=== PATIENT | female | born 1930 | race Caucasian/White ===

== ENCOUNTER 2017-07-28 18:00 | Inpatient (IN) | payer MEDICARE, BC ==
[~2017-07-28] VITALS: Ht 162.6 cm; Wt 65.8 kg
--- NOTE | ~2017-07-28 | DS ---
Discharge Summary [facility] [address] [facility] [place]. [address] NAME: REGINA SHARMA : [birth year] STATUS : DIS IN PAT#: [id number] AGE: 86 ADM/REG DATE : 07/29/17 MR#: [id number] REPORT SERV DATE: 08/04/17 DICTATED BY: TREMAYNE SHARMA DATE: 08/03/17 REPORT STATUS : Draft TRANSCRIBED BY: MODL DATE: 08/03/17 ADMISSION DATE: 07/29/2017 DISCHARGE DATE: 08/03/2017 REASON FOR ADMISSION: This is an 86-year-old female who came in with chief complaint of fall and hip pain. In the emergency room, she was found to have white blood cell count of 19,000 and urinalysis which was positive for leukocyte esterase, nitrates, and 20 white blood cells. The patient admitted for UTI and right hip pain. X-rays in the ER on her hip would be negative for fracture. DISCHARGE DIAGNOSES: 1. Urinary tract infection with Escherichia coli bacteremia. 2. Atrial fibrillation with rapid ventricular response. 3. Acute kidney injury on chronic kidney disease, 3. 4. Hypertension. 5. Pulmonary edema, resolving, status post diuresis. HOSPITAL COURSE: 1. UTI. The patient would have urine culture come back positive for E coli and then later would have blood cultures come back 2/2 positive for E coli. Initially, she was started on IV Rocephin and then transitioned over to IV Ancef once final cultures were known. She will need to be on oral Duricef which we have converted her to for 8 more days to complete a 2-week course of antibiotic for the UTI E coli bacteremia. 2. AFib with RVR. The patient with known history of paroxysmal atrial fibrillation. Consult was placed to Cardiology. The patient was seen by Dr. Godwin for the paroxysmal atrial fibrillation. He recommended continuing Coumadin and also recommended considering doing elective DC cardioversion. The patient would have cardioversion on the and is still in normal sinus rhythm today. She has been continued on Coumadin and her INR is 2.6. 3. Pulmonary edema. The patient did have a cough coming in which worsened during her AFib with RVR. Chest x-ray was taken which was found to have some pulmonary edema. She was given Lasix IV and showed improvement on chest x-ray this morning. She is on oral Lasix which will be continued 20 mg p.o. daily. 4. CKD 3. The patient did have a spike in her creatinine coming in the hospital. Creatinine was 1.98, would elevate to 2.23, and has come down at 1.57 today which is at baseline. DISCHARGE CONDITION: Stable. DISCHARGE MEDICATIONS: 1. Warfarin 5 mg p.o. daily. 2. Procrit 22,000 units subcutaneous every 30 days. 3. Metoprolol 50 mg p.o. b.i.d. 4. Spironolactone 25 mg p.o. daily. 5. Primidone 250 mg p.o. daily. 6. Allopurinol 100 mg p.o. daily. Discharge Summary [address] [address] NAME: REGINA SHARMA : [birth year] STATUS : DIS IN PAT#: [id number] AGE: 86 ADM/REG DATE : 07/29/17 MR#: [id number] REPORT SERV DATE: 08/04/17 DICTATED BY: TREMAYNE SHARMA DATE: 08/03/17 REPORT STATUS : Draft TRANSCRIBED BY: ACLE DATE: 08/03/17 7. Calcitriol 0.25 mcg p.o. Sunday, Sunday, Sunday. 8. Omeprazole 20 mg p.o. daily. 9. Vitamin D Caltrate one tablet p.o. every seven days. 10.Flecainide 25 mg p.o. q.a.m., 50 mg p.o. q.p.m. 11.Vitamin D 50,000 units p.o. weekly. 12.Levothyroxine 37.5 mcg p.o. daily. 13.Zoloft 50 mg p.o. daily. DISCHARGE PLAN: The patient had a fall coming into the hospital, was not found to have fracture, but PT evaluation here at the hospital revealed need for inpatient rehab. She will be discharged to [facility] for rehab. She will need to follow up with her primary care, Yuval Sharma, after rehab and follow up with Cardiology in two to four weeks. This dictation was done in collaboration with Tremayne Sharma MD., and total discharge time greater than 30 minutes. KOKO/JEOVANYL Chevy uL APN Tremayne Sharma M.D. / [id number] CC: Nora Moreno M.D. John Carter Hemphill, MD
--- NOTE | ~2017-07-28 | CN ---
Consultation Report [facility] [address] [place]. [address] NAME: REGINA SHARMA : [birth year] STATUS : ADM IN PAT#: [id number] AGE: 86 ADM/REG DATE : 07/29/17 MR#: [id number] REPORT SERV DATE: 07/31/17 DICTATED BY: JIM STAPLES DATE: 07/30/17 REPORT STATUS : Draft TRANSCRIBED BY: MODSantosh DATE: 07/30/17 CARDIOLOGY CONSULTATION NOTE DATE OF CONSULTATION: 07/30/2017 REASON FOR CONSULTATION: Paroxysmal atrial fibrillation and atrial fibrillation with rapid ventricular response. HISTORY OF PRESENT ILLNESS: Ms. Sharma is a pleasant 86-year-old woman with a history of paroxysmal atrial fibrillation, who is followed by Dr. German Cooper. The patient was in her usual state of health until yesterday. The patient apparently suffered a fall onto her left hip. The patient was initially felt to have a hip fracture, but subsequent x-ray and CT studies of the hip demonstrated no significant hip fracture. The patient was found to have a urinary tract infection. She is now found to have urosepsis with E. coli on 3 out of 3 blood cultures. The patient is being treated with antibiotics. She had a leukocytosis, which is improving. The patient is presently afebrile. Last night, the patient converted from sinus rhythm to atrial fibrillation with a rapid ventricular response. The patient has been treated with IV Cardizem and her heart rate is now adequately controlled with a rate in the 70s and 80s. The patient is mildly tachypneic at this time. She was more severely tachypneic last night per report, though she currently reports that she is breathing easily. She denies any chest pain. The patient has had 3 previous cardioversions for episodes of atrial fibrillation. She is being treated with flecainide for a rhythm-control strategy. The patient has no known history of congestive heart failure. Her most recent echocardiogram was performed in the year 2011, and demonstrates a left ventricular ejection fraction of 56% with no significant valvular heart disease. PAST MEDICAL HISTORY: 1. Hypertension. 2. Atrial fibrillation. 3. Frequent falls. 4. Stage III chronic kidney disease. 5. Hypothyroidism. PAST SURGICAL HISTORY: Significant for hysterectomy, and otherwise noncontributory. SOCIAL HISTORY: The patient has no significant history of tobacco, alcohol, or drug use. She lives independently at home and ambulates with a walker. ALLERGIES: THE PATIENT HAS NO KNOWN MEDICATION ALLERGIES. HOME MEDICATIONS: 1. Allopurinol 100 mg p.o. q.p.m. 2. Norvasc 10 mg p.o. q.p.m. Consultation Report [facility] [address] [place]. [address] NAME: REGINA SHARMA : [birth year] STATUS : ADM IN PAT#: [id number] AGE: 86 ADM/REG DATE : 07/29/17 MR#: [id number] REPORT SERV DATE: 07/31/17 DICTATED BY: JIM STAPLES DATE: 07/30/17 REPORT STATUS : Draft TRANSCRIBED BY: CALE DATE: 07/30/17 3. Artificial Tears as needed. 4. Calcitriol 0.25 mg p.o. Sunday, Sunday, and Sunday morning. 5. Caltrate 1 tablet weekly on Wednesdays. 6. Chlorthalidone 25 mg p.o. q.p.m. 7. Clonidine 0.1 mg p.o. q.a.m. and 0.2 mg p.o. q.p.m. 8. Docusate 100 mg p.o. q.p.m. and 100 mg p.o. every Sunday and Sunday a.m. 9. Vitamin D 50,000 units p.o. weekly. 10.Flecainide 25 mg p.o. q.a.m. and 50 mg q.p.m. 11.Levothyroxine 37.5 mg daily. 12.Losartan 150 mg p.o. every afternoon. 13.Metoprolol tartrate 50 mg p.o. twice daily. 14.Prilosec 20 mg p.o. q.p.m. 15.Mysoline 250 mg p.o. q.p.m. 16.Zoloft 50 mg p.o. every evening. 17.Aldactone 25 mg daily. 18.Procrit injections. 19.Coumadin 6 mg p.o. q.p.m. REVIEW OF SYSTEMS: A complete 12-system review was performed. This is noncontributory except for the pertinent positives and negatives noted in the history of present illness above. PHYSICAL EXAMINATION: VITAL SIGNS: Current temperature is 97.9, T-max is 100.0, blood pressure is 144/65, heart rate is 89 beats per minute and irregular, respirations 23, and oxygen saturation is 94% on 2 L. CONSTITUTIONAL: The patient is a frail elderly white woman, who is slightly tachypneic, but otherwise in no acute distress. She speaks in complete sentences. The patient exhibits a generalized tremor. EYES: PERRL, EOMI, clear conjunctiva. HEAD/MNT: NCAT with moist mucous membranes and grossly normal hard and soft palate. NECK: Supple with no obvious thyromegaly or lymphadenopathy CARDIOVASCULAR: There is an irregularly irregular rhythm with a variable S1 and physiologically split second heart sound. There is a grade 2/6 systolic ejection murmur noted at the right upper sternal border with a holosystolic murmur noted at the left lower sternal border which does not clearly radiate. The jugular venous pressure appears to be elevated at 10 cm of water. PULMONARY: There are rales noted in the lung bases bilaterally with globally decreased air movement. There is no dullness to percussion noted. ABDOMINAL: Soft, non-tender, non-distended with no hepatosplenomegaly noted. EXTREMITIES: There is no significant clubbing, cyanosis, or edema. MUSCULOSKELETAL: Grossly normal strength and range of motion in all extremities INTEGUMENTARY: Skin appears intact with no bruises, wounds or active lesions noted NEURO/PSYC: Alert and oriented x3, with no dysarthria, facial droop or lateralizing weakness noted. Consultation Report [address] [address] NAME: REGINA SHARMA : [birth year] STATUS : ADM IN [facility]#: [id number] AGE: 86 ADM/REG DATE : 07/29/17 MR#: [id number] REPORT SERV DATE: 07/31/17 DICTATED BY: JIM STAPLES DATE: 07/30/17 REPORT STATUS : Draft TRANSCRIBED BY: CALE DATE: 07/30/17 DIAGNOSTIC DATA: A 12-lead EKG: The patient's admission 12-lead EKG shows normal sinus rhythm with poor anterior R-wave progression and an incomplete left bundle-branch block pattern and secondary ST/T-wave changes. A subsequent EKG performed on 07/29/2017, at 1436 hours shows atrial fibrillation with a rapid ventricular response and a ventricular rate of 126 beats per minute. Chest x-ray: This shows cephalization/mild pulmonary vascular congestion with no other acute abnormality. CBC shows a white blood cell count of 11.3, hemoglobin 9.9, hematocrit 31, and platelets 180. INR is 1.9. Electrolytes show a sodium of 141, potassium 4.0, chloride is 112, CO2 of 18, BUN 59, creatinine is 1.97, glucose 98, and calcium is 7.9. Procalcitonin is elevated at 2.16. Again, the patient has positive blood cultures for E. coli. Albumin is decreased at 3.3. TSH is normal at 1.35. ASSESSMENT AND PLAN: 1. Paroxysmal atrial fibrillation: I would recommend the patient continue Coumadin if possible. The patient is currently being treated with Lovenox, though this has been discontinued and a heparin drip has been ordered. Once the patient is euvolemic and her urinary tract infection has been treated, we will consider elective DC cardioversion as per the patient's request. The patient will probably not require transesophageal echocardiography as she has been on Coumadin and/or Lovenox/heparin since admission and has been in atrial fibrillation for less than 24 hours. 2. Congestive heart failure: The patient has elevated jugular venous pressure, cephalization on her chest x-ray, and pulmonary rales suggestive of acute heart failure. This is likely due to diastolic heart failure from atrial fibrillation with rapid ventricular response. A repeat echocardiogram will be obtained to evaluate for valvular heart disease given the patient's murmurs, and also to re-evaluate the patient's left ventricular systolic function. 3. Chronic kidney disease: The patient is being rehydrated for her acute on chronic renal failure. However, the patient does appear to be at least mildly volume overloaded. I have requested that the patient's IV fluids to be discontinued. If the patient continues to exhibit evidence of volume overload, we will consider gentle diuresis as tolerated. Thank you for allowing me to participate in the care of Ms. Sharma. The Cardiology Service will continue to follow the patient closely during this hospitalization. JERROD/CALE Jim Seymour Consultation [facility] [address] [facility] [address] NAME: REGINA SHARMA : [birth year] STATUS : ADM IN PAT#: [id number] AGE: 86 ADM/REG DATE : 07/29/17 MR#: [id number] REPORT SERV DATE: 07/31/17 DICTATED BY: JIM STAPLES DATE: 07/30/17 REPORT STATUS : Draft TRANSCRIBED BY: MODL DATE: 07/30/17 MD Citlali / [id number] CC: Nora Nayak M.D.
--- NOTE | ~2017-07-28 | HP ---
History And Physical [place] [id number] [facility] [place]. [address] NAME: REGINA SHARMA : [birth year] STATUS : ADM IN PAT#: [id number] AGE: 86 ADM/REG DATE : 07/29/17 MR#: [id number] REPORT SERV DATE: 07/29/17 DICTATED BY: MANPREET JEREZ DATE: 07/29/17 REPORT STATUS : Draft TRANSCRIBED BY: MODL DATE: 07/29/17 DATE OF ADMISSION: 07/28/2017 POINT OF ENTRY: [facility] Emergency Department. PRIMARY PRODUCT SUPPORT REPRESENTATIVE: Dr. Cooper. PRIMARY BARBACK: Dr. Ko. CHIEF COMPLAINT: Fall with hip pain. HISTORY OF PRESENT ILLNESS: Ms. Sharma is an 86-year-old female with a history of paroxysmal atrial fibrillation, on Coumadin; as well as hypertension; chronic kidney disease stage 3; hypothyroidism; and osteoarthritis, who presents to the emergency department today with reports of a mechanical fall at home with resulting hip pain and difficulties walking. The patient states she was in her usual state of health until today when walking into her den, which is sunken. She tripped and fell while going down the steps into her den. She denies any head trauma. Denies any loss conscious, but was unable to get up off the ground and laid there for approximately two to three hours before family members found her on the ground and assisted her back up. The patient states initially she had some pain in her left hip region, but was able to walk with significant assistance, but a few hours later, after trying to get up out of the bed, she was in such severe pain that she was unable to walk or place any weight on her lower extremities even with maximal assistance from family. The patient and family tell me of multiple episodes of mechanical falls, some including head trauma. She has multiple areas of superficial skin tears, abrasions, and bruises from current and previous falls. The patient describes a chronic sensation of disequilibrium, where she said she staggers and occasionally falls backwards while walking. She denies any recent fevers, night sweats, chills, chest pain, palpitations, shortness of breath, abdominal pain, nausea, vomiting, diarrhea, constipation, dysuria, melena, hematochezia, hemoptysis, or hematemesis. Initial evaluation in the emergency department is notable for blood pressure 196/77, heart rate of 90 with a temperature of 100.0 degrees Fahrenheit. Labs are notable for a white count of 19,000. She does have urinary tract infection. BUN and creatinine above her recent baseline. CT of the brain is unremarkable. CT scan of the pelvis as well as plain films of the hips and pelvic region are also unremarkable. She was subsequently admitted to the Hospitalist Service for further evaluation and management. COMPREHENSIVE REVIEW OF SYSTEMS: Otherwise negative unless listed in history of present illness. PREVIOUS MEDICAL HISTORY: 1. Paroxysmal atrial fibrillation, on anticoagulation. History And Physical [address] [address] NAME: REGINA SHARMA : [birth year] STATUS : ADM IN [facility]#: [id number] AGE: 86 ADM/REG DATE : 07/29/17 MR#: [id number] REPORT SERV DATE: 07/29/17 DICTATED BY: MANPREET JEREZ DATE: 07/29/17 REPORT STATUS : Draft TRANSCRIBED BY: CALE DATE: 07/29/17 2. Hypertension. 3. Chronic kidney disease stage 3. Baseline creatinine approximately 1.2 to 1.4. 4. Essential tremor. 5. Hypothyroidism. 6. Gout. 7. Spinal stenosis. 8. Osteoarthritis. 9. Chronic anemia. SURGICAL HISTORY: 1. Abdominal hysterectomy. 2. Right cataract. 3. Parathyroidectomy. 4. Appendectomy. ALLERGIES: NO KNOWN DRUG ALLERGIES. HOME MEDICATIONS: 1. Allopurinol 100 mg daily. 2. Norvasc 10 mg daily. 3. Artificial tears one drop q.i.d. p.r.n. 4. Rocaltrol 0.25 mcg Sunday, Sunday, Sunday. 5. Caltrate with D one tab every week. 6. Chlorthalidone 25 mg daily. 7. Clonidine 0.1 mg daily. 8. Clonidine 0.2 mg q.p.m. 9. Docusate 100 mg q.p.m. 10.Docusate 100 mg Sunday and Sunday mornings. 11.Vitamin D 50,000 units weekly. 12.Flecainide 25 mg q.a.m. 13.Flecainide 50 mg q.p.m. 14.Levothyroxine 37.5 mcg daily. 15.Cozaar 150 mg daily. 16.Lopressor 50 mg b.i.d. 17.Omeprazole 20 mg daily. 18.Primidone 250 mg daily. 19.Zoloft 50 mg daily. 20.Aldactone 25 mg daily. 21.Procrit every month. 22.Eye injections every 42 days. 23.Coumadin 6 mg daily. SOCIAL HISTORY: She denies any tobacco, alcohol, or illicits. She lives alone. FAMILY MEDICAL HISTORY: Mother with diabetes, congestive heart failure. Father with cerebral hemorrhage. Siblings with congestive heart failure, end-stage renal disease, and diabetes. History And Physical [address] [address] NAME: REGINA SHARMA : [birth year] STATUS : ADM IN [facility]#: [id number] AGE: 86 ADM/REG DATE : 07/29/17 MR#: [id number] REPORT SERV DATE: 07/29/17 DICTATED BY: MANPREET JEREZ DATE: 07/29/17 REPORT STATUS : Draft TRANSCRIBED BY: CALE DATE: 07/29/17 LABS AND IMAGIN. White count is 19.0, hemoglobin is 10.9, hematocrit is 33.2, platelet count is 224, MCV is 108, INR is 2.2. 2. Sodium is 140, potassium 4.4, chloride 109, carbon dioxide 22, BUN 56, creatinine 1.98, glucose is 124, calcium is 9.1, protein 7.5, albumin is 3.3, bilirubin is 0.4, ALT is 29, AST is 39, alkaline phosphatase is 107. 3. Urinalysis, specific gravity is 1.014, hazy with small leukocyte esterase with positive nitrites and 20 white blood cells per high-powered field. 4. Chest x-ray per my review shows no acute cardiopulmonary abnormality. 5. Plain films of the hip and pelvis also per my review shows no acute fractures or dislocations. 6. CT scan of the brain shows no acute intracranial abnormality. Shows moderate diffuse involutional changes and deep white matter changes. 7. CT scan of the abdomen and pelvis shows no acute fractures or dislocations. Does show evidence of diverticulosis without evidence of diverticulitis. 8. EKG per my review shows normal sinus rhythm with no evidence of any acute ischemia or infarction with some LVH-type changes. PHYSICAL EXAMINATION: VITAL SIGNS: Temperature is 100.0 degrees Fahrenheit, pulse 90, respirations 20, saturating 97% on room air, blood pressure 196/77. On recheck, blood pressure is now is 142/72, pulse of 95. GENERAL: The patient is awake, alert, in no acute distress, resting comfortably in bed. She is a well-developed, well-nourished elderly female. Family members are at bedside. HEENT: Atraumatic and normocephalic. Moist mucous membranes. Pupils are equal, round, reactive to light and accommodation. Extraocular eye movements are intact. No scleral icterus. NECK: No jugular venous distention. No carotid bruits. CARDIAC: Regular rate and rhythm with 3/6 systolic murmur heard best over left lower sternal border. LUNGS: Clear to auscultation bilaterally. No wheezes, rhonchi, or crackles. ABDOMEN: Soft, nontender, nondistended with good bowel sounds. No rebound, guarding, or rigidity. EXTREMITIES: Warm and well perfused. No cyanosis, clubbing, or edema. Does have some mild tenderness to palpation over her bilateral hip region, left greater than right. SKIN: Multiple areas of abrasions as well as skin tears notably over the right elbow and right walton as well as some ecchymoses as well. PSYCH: Affect appropriate. NEURO: Alert and oriented x3. Cranial nerves 2 through 12 grossly intact. Speech is normal. Gait not assessed. ASSESSMENT: Ms. Sharma is an 86-year-old female, who suffered a mechanical fall at home today with resulting hip and lower extremity pain with inability to walk and also found to have evidence of acute kidney injury on chronic kidney stage 3, as well as urinary tract infection. History And Physical [address] [address] NAME: REGINA SHARMA : [birth year] STATUS : ADM IN PAT#: [id number] AGE: 86 ADM/REG DATE : 07/29/17 MR#: [id number] REPORT SERV DATE: 07/29/17 DICTATED BY: MANPREET JEREZ DATE: 07/29/17 REPORT STATUS : Draft TRANSCRIBED BY: CALE DATE: 07/29/17 PROBLEM LIST: 1. Fall. 2. Hip and lower extremity pain. 3. Gait abnormality. 4. Urinary tract infection. 5. Acute kidney injury on chronic kidney disease stage 3. 6. Leukocytosis. 7. Paroxysmal atrial fibrillation, on anticoagulation. PLAN: 1. Fall with right hip pain. We will admit the patient to the Hospitalist Service. We will provide supportive care with antiemetics and pain control. We will consult Physical Therapy for assistance. Should she continue to have difficulties ambulating due to pain, will likely need to be placed in nursing facility in the short term. 2. Urinary tract infection. Follow up urine cultures. IV Rocephin. 3. Acute kidney injury on chronic kidney disease stage 3. Gentle IV fluid hydration. Holding the patient's nephrotoxic medications including chlorthalidone, Aldactone, and losartan. 4. Leukocytosis likely secondary to urinary tract infection. Chest x-ray is clear. Follow up blood cultures. Also checking lactic acid as well as procalcitonin. 5. Paroxysmal atrial fibrillation, on anticoagulation. The patient reports a history of multiple mechanical falls, some including head trauma. Given the patient's advanced age as well as gait instability, I suspect that she is a very high fall risk and very high risk for possible intracerebral hemorrhage given her anticoagulation. We will consult Physical Therapy for assistance in evaluation, but ultimately defer decision whether or not to continue anticoagulation to her primary care provider as well as her program director scouting. 6. Hypertension. Continue the patient's home Norvasc and metoprolol. Given that I am holding her diuretics and losartan, we will add on hydralazine IV p.r.n. for elevated blood pressure. 7. DVT prophylaxis. She is already therapeutically anticoagulated. 8. Code status. The patient wished to be full code. JCB/MODL Manpreet Jerez MD / [id number] CC: Nora River M.D. Nilesh C Patel, M.D.
--- NOTE | ~2017-07-28 | OP ---
Record Of Operation [facility] [address] [place]. [address] NAME: REGINA SHARMA : [birth year] STATUS : ADM IN PAT#: [id number] AGE: 86 ADM/REG DATE : 07/29/17 MR#: [id number] REPORT SERV DATE: 08/02/17 DICTATED BY: DATE: REPORT STATUS : Draft TRANSCRIBED BY: MODL DATE: 08/02/17 DATE OF PROCEDURE: 08/02/2017 CHIEF COMPLAINT/REASON FOR STUDY: Atrial fibrillation. Written informed consent obtained. Please see chart for documentation. PROCEDURE: With the assistance of my Anesthesia colleagues, Ms. Sharma was sedated for the procedure. The transesophageal probe was placed with one attempt without complications. Salient 2D echocardiographic images obtained. The procedure was terminated prematurely due to desaturation. Then DC cardioversion was performed, 200 joules x1 with return to sinus rhythm. Following return to sinus rhythm and return of adequate oxygenation, the remainder of the echocardiogram was completed including 2D color and spectral Doppler imaging. 1. The left ventricular systolic function was normal with a visually estimated ejection fraction greater than 55%. 2. The right ventricular chamber size and systolic function are normal. 3. The right atrium was mildly dilated. At the junction of the inferior vena cava and the right atrium, there was a linear echodensity consistent with eustachian valve. 4. The left atrium was severely dilated. There was no evidence of left atrial thrombus. 5. The left atrial appendage was interrogated at multiple levels and depths. There was no evidence of left atrial appendage thrombus present. 6. The mitral valve leaflets were mildly thickened. There was mild mitral annular calcification. There was mild mitral regurgitation. 7. The aortic valve was trileaflet and opened adequately. There was mild color flow evidence of aortic valvular regurgitation and was directed directly towards the anterior mitral valve leaflet. 8. The tricuspid valve was structurally normal. There was mild tricuspid valvular regurgitation. 9. The pulmonary valve was structurally normal. There was no evidence of pulmonary valvular regurgitation. 10.There was no evidence of pericardial effusion. IMPRESSION: Successful DC cardioversion. LUCIO/CALE Thelma Marte M.D. / [id number] CC: Record Of Operation [facility] [place] [address] [address] [address] NAME: REGINA SHARMA : [birth year] STATUS : ADM IN PAT#: [id number] AGE: 86 ADM/REG DATE : 07/29/17 MR#: [id number] REPORT SERV DATE: 08/02/17 DICTATED BY: DATE: REPORT STATUS : Draft TRANSCRIBED BY: MODL DATE: 08/02/17 David Moss M.D. Yuval Sharma M.D.
[~2017-07-28 18:00] MED LIST: C5 PO; CAT2 PO; CAT3 PO; COZAAR100 MG PO; DIOVAN320 MG PO; HYGROTON 25 MG25 MG PO; L20 PO; LABETALOL100 MG OR; LEVOTHYROXIN75 MCG PO; LOP50 PO; MOVE FREE PO; MULTIPLE VIT PO; NORV10 PO; OS500+D PO; PRILO PO; PRILOSEC OTC20 MG PO; PRIM50B PO; PROCRIT10 SC; ROCALTROL0.25 MCG PO; SPIRO25 PO; SYN075 PO; TAMBO50 PO; TRANDAT100 PO; ULTRAM50 PO; VITAMIN D1000 UNI1 PO; Z100 PO; ZOL100 PO; ZOL50 PO
[2017-07-28 20:59] LABS: BASOPHILS 0.1 %; BASOPHILS ABSOLUTE 0.02 10/3/uL (0.0-0.16); EOSINOPHILS 0.1 %; EOSINOPHILS ABSOLUTE 0.01 10/3/uL (0.0-0.53); HEMATOCRIT 33.3 % (36.0-48.0); HEMOGLOBIN 10.9 g/dL (12.0-16.0); IMMATURE GRANULOCYTES 0.4 %; IMMATURE GRANULOCYTES ABSOLUTE 0.08 10/3/uL (0.0-0.11); LYMPHOCYTES 7.5 %; LYMPHOCYTES ABSOLUTE 1.42 10/3/uL (0.67-4.30); MANUAL DIFF NO %; MEAN CORPUS HGB CONC 32.7 g/dL (32.0-36.0); MEAN CORPUSCULAR HEMOGLOB 35.4 pg (26.0-34.0); MEAN CORPUSCULAR VOLUME 108.1 fL (80-100); MEAN PLATELET VOLUME 10.5 fL (9.2-13.0); MONOCYTES 9.2 %; MONOCYTES ABSOLUTE 1.76 10/3/uL (0.21-1.20); NEUTROPHILS 82.7 %; NEUTROPHILS ABSOLUTE 15.74 10/3/uL (2.02-8.40); PLATELET COUNT 234 10/3/uL (150-400); RBC DISTRIBUTION WIDTH 16.1 % (12.0-16.0); RED CELL COUNT 3.08 10/6/uL (4.0-5.6)
[2017-07-28 21:06] LABS: INTERNATIONAL NORMAL RATI 2.2 UNITS (-); PROTIME (NOT ORD) 24.5 SEC (12.0-14.5)
[2017-07-28 21:16] LABS: A/G RATIO 0.8 (0.7-1.9); ALBUMIN 3.3 G/DL (3.5-5.0); ALKALINE PHOSPHATASE 107 U/L (45-117); BUN (BLOOD UREA NITROGEN) 56 MG/DL (6-23); CALCIUM, SERUM 9.1 MG/DL (8.5-10.4); CHLORIDE, SERUM 109 MMOL/L (96-112); CO2 (CARBON DIOXIDE) 22 MMOL/L (24-34); CREATININE 1.98 MG/DL (0.55-1.02); GFR AFRICAN AMERICAN 26 ML/MIN (>=60); GFR NON AFRICAN AMERICAN 22 ML/MIN (>=60); GLOBULIN 4.2 G/DL (2.5-4.1); GLUCOSE, SERUM 124 MG/DL (60-99); POTASSIUM, SERUM 4.4 MMOL/L (3.5-5.3); SGOT(AST) 39 U/L (5-40); SGPT(ALT) 29 U/L (5-65); SODIUM, SERUM 140 MMOL/L (135-148); TOTAL BILIRUBIN 0.4 MG/DL (0-1.2); TOTAL PROTEIN 7.5 G/DL (6.0-8.5)
[2017-07-28 21:58] LABS: ASCORBIC ACID (UR NOT ORDER) NEG (NEG); BILIRUBIN, URINE NEGATIVE (NEG); ER URINALYSIS TAT 0 Hrs 15 Mins; KETONE, URINE NEGATIVE (NEG); LEUKOCYTE ESTERASE(NOT OR SMALL (NEG); NITRITE (URINE) POS (NEG); WBC (NOT ORDERED) (RFLEX) 20 (0-5)
[2017-07-28] MEDS ORDERED: COUMADIN6 MG PO (23:36)
[2017-07-28] MEDS ORDERED: PROCRIT SC (23:37)
[2017-07-28] MEDS ORDERED: HYGROTON 25 MG25 MG PO (23:37)
[2017-07-28] MEDS ORDERED: CAT2 PO (23:38)
[2017-07-28] MEDS ORDERED: CAT1 PO (23:38)
[2017-07-28] MEDS ORDERED: LOP50 PO (23:38)
[2017-07-28] MEDS ORDERED: SPIRO25 PO (23:39)
[2017-07-28] MEDS ORDERED: COZ50 PO (23:39)
[2017-07-28] MEDS ORDERED: NORV10 PO (23:39)
[2017-07-28] MEDS ORDERED: ROCALTROL 0.0.25 MCG PO (23:40)
[2017-07-28] MEDS ORDERED: Z100 PO (23:40)
[2017-07-28] MEDS ORDERED: PRIM250 PO (23:40)
[2017-07-28] MEDS ORDERED: TEARS PURE OPH (23:41)
[2017-07-28] MEDS ORDERED: EYE INJECTION IO (23:41)
[2017-07-28] MEDS ORDERED: PRILO PO (23:42)
[2017-07-28] MEDS ORDERED: CALTRA600D PO (23:42)
[2017-07-28] MEDS ORDERED: DSS PO ×2 (23:43)
[2017-07-28] MEDS ORDERED: FLECAINIDE50 MG PO ×2 (23:45→23:46)
[2017-07-28] MEDS ORDERED: VITD PO (23:48)
[2017-07-28] MEDS ORDERED: LEVOTHYROXIN75 MCG PO (23:51)
[2017-07-28] MEDS ORDERED: ZOL50 PO (23:53)
[2017-07-29 01:01] LABS: CPK 208 U/L (0-200)
[2017-07-29 01:19] LABS: PROCALCITONIN 2.16 ng/mL (<0.5)
[2017-07-29 06:21] LABS: HEMATOCRIT 32.6 % (36.0-48.0); HEMOGLOBIN 10.5 g/dL (12.0-16.0); MANUAL DIFF YES %; MEAN CORPUS HGB CONC 32.2 g/dL (32.0-36.0); MEAN CORPUSCULAR HEMOGLOB 34.8 pg (26.0-34.0); MEAN CORPUSCULAR VOLUME 107.9 fL (80-100); MEAN PLATELET VOLUME 9.8 fL (9.2-13.0); PLATELET COUNT 194 10/3/uL (150-400); RBC DISTRIBUTION WIDTH 16.4 % (12.0-16.0); RED CELL COUNT 3.02 10/6/uL (4.0-5.6); WHITE BLOOD CELLS 15.9 10/3/uL (4.5-10.5)
[2017-07-29 06:27] LABS: INTERNATIONAL NORMAL RATI 1.9 UNITS (-); PROTIME (NOT ORD) 21.3 SEC (12.0-14.5)
[2017-07-29 06:47] LABS: ALBUMIN 2.9 G/DL (3.5-5.0); BUN (BLOOD UREA NITROGEN) 54 MG/DL (6-23); CALCIUM, SERUM 8.6 MG/DL (8.5-10.4); CHLORIDE, SERUM 111 MMOL/L (96-112); CO2 (CARBON DIOXIDE) 21 MMOL/L (24-34); CPK 228 U/L (0-200); CREATININE 1.68 MG/DL (0.55-1.02); FREE T4 0.81 NG/DL (0.76-1.46); GFR AFRICAN AMERICAN 31 ML/MIN (>=60); GFR NON AFRICAN AMERICAN 27 ML/MIN (>=60); GLUCOSE, SERUM 107 MG/DL (60-99); SODIUM, SERUM 140 MMOL/L (135-148)
[2017-07-29 06:48] LABS: PHOSPHORUS, SERUM 3.7 MG/DL (2.5-4.5)
[2017-07-29 07:37] LABS: BAND NEUTROPHILS 11 %; LYMPHOCYTES 5 %; MONOCYTES 3 %; MONOCYTES ABSOLUTE (CALC) 0.48 10/3/uL (0.21-1.20); NEUTROPHILS ABSOLUTE (CALC) 14.63 10/3/uL (2.02-8.40); PLATELET ESTIMATE ADQ (ADEQUATE); SEGMENTED NEUTROPHIL (0) 81 %; TOTAL NUCLEATED CELLS 100
[2017-07-29 07:38] LABS: TOXIC GRANULATION SLT
[2017-07-29 10:00] LABS: CREATININE, URINE 84.9 MG/DL
[2017-07-30 06:26] LABS: BASOPHILS 0.1 %; BASOPHILS ABSOLUTE 0.01 10/3/uL (0.0-0.16); EOSINOPHILS 0.1 %; EOSINOPHILS ABSOLUTE 0.01 10/3/uL (0.0-0.53); HEMATOCRIT 30.5 % (36.0-48.0); HEMOGLOBIN 9.9 g/dL (12.0-16.0); IMMATURE GRANULOCYTES 0.2 %; IMMATURE GRANULOCYTES ABSOLUTE 0.02 10/3/uL (0.0-0.11); LYMPHOCYTES 10.7 %; MANUAL DIFF NO %; MEAN CORPUS HGB CONC 32.5 g/dL (32.0-36.0); MEAN CORPUSCULAR HEMOGLOB 35.6 pg (26.0-34.0); MEAN CORPUSCULAR VOLUME 109.7 fL (80-100); MEAN PLATELET VOLUME 10.7 fL (9.2-13.0); MONOCYTES 7.1 %; NEUTROPHILS 81.8 %; NEUTROPHILS ABSOLUTE 9.22 10/3/uL (2.02-8.40); PLATELET COUNT 180 10/3/uL (150-400); RBC DISTRIBUTION WIDTH 16.4 % (12.0-16.0); RED CELL COUNT 2.78 10/6/uL (4.0-5.6); WHITE BLOOD CELLS 11.3 10/3/uL (4.5-10.5)
[2017-07-30 06:32] LABS: INTERNATIONAL NORMAL RATI 1.9 UNITS (-); PROTIME (NOT ORD) 21.3 SEC (12.0-14.5)
[2017-07-30 06:35] LABS: BUN (BLOOD UREA NITROGEN) 59 MG/DL (6-23); CALCIUM, SERUM 7.9 MG/DL (8.5-10.4); CHLORIDE, SERUM 112 MMOL/L (96-112); CO2 (CARBON DIOXIDE) 18 MMOL/L (24-34); CREATININE 1.97 MG/DL (0.55-1.02); GFR AFRICAN AMERICAN 26 ML/MIN (>=60); GFR NON AFRICAN AMERICAN 22 ML/MIN (>=60); GLUCOSE, SERUM 98 MG/DL (60-99); SODIUM, SERUM 141 MMOL/L (135-148)
[2017-07-31 05:09] LABS: BASOPHILS 0.1 %; BASOPHILS ABSOLUTE 0.01 10/3/uL (0.0-0.16); EOSINOPHILS 0.4 %; EOSINOPHILS ABSOLUTE 0.04 10/3/uL (0.0-0.53); HEMATOCRIT 29.1 % (36.0-48.0); HEMOGLOBIN 9.7 g/dL (12.0-16.0); IMMATURE GRANULOCYTES 0.1 %; IMMATURE GRANULOCYTES ABSOLUTE 0.01 10/3/uL (0.0-0.11); LYMPHOCYTES 12.5 %; LYMPHOCYTES ABSOLUTE 1.16 10/3/uL (0.67-4.30); MEAN CORPUS HGB CONC 33.3 g/dL (32.0-36.0); MEAN CORPUSCULAR HEMOGLOB 35.9 pg (26.0-34.0); MEAN CORPUSCULAR VOLUME 107.8 fL (80-100); MONOCYTES 9.7 %; NEUTROPHILS 77.2 %; NEUTROPHILS ABSOLUTE 7.14 10/3/uL (2.02-8.40); PLATELET COUNT 179 10/3/uL (150-400); RBC DISTRIBUTION WIDTH 16.4 % (12.0-16.0); WHITE BLOOD CELLS 9.3 10/3/uL (4.5-10.5)
[2017-07-31 05:10] LABS: MANUAL DIFF NO %
[2017-07-31 05:15] LABS: INTERNATIONAL NORMAL RATI 1.9 UNITS (-); PROTIME (NOT ORD) 21.6 SEC (12.0-14.5)
[2017-07-31 05:35] LABS: CALCIUM, SERUM 8.1 MG/DL (8.5-10.4); CHLORIDE, SERUM 108 MMOL/L (96-112); CO2 (CARBON DIOXIDE) 19 MMOL/L (24-34); CREATININE 2.23 MG/DL (0.55-1.02); GFR AFRICAN AMERICAN 22 ML/MIN (>=60); GFR NON AFRICAN AMERICAN 19 ML/MIN (>=60); GLUCOSE, SERUM 112 MG/DL (60-99); PHOSPHORUS, SERUM 3.5 MG/DL (2.5-4.5); POTASSIUM, SERUM 4.3 MMOL/L (3.5-5.3); SODIUM, SERUM 138 MMOL/L (135-148)
[2017-07-31 05:36] LABS: BUN (BLOOD UREA NITROGEN) 70 MG/DL (6-23)
[2017-08-01 07:08] LABS: BASOPHILS 0.1 %; BASOPHILS ABSOLUTE 0.01 10/3/uL (0.0-0.16); EOSINOPHILS 0.9 %; EOSINOPHILS ABSOLUTE 0.08 10/3/uL (0.0-0.53); HEMATOCRIT 28.7 % (36.0-48.0); HEMOGLOBIN 9.7 g/dL (12.0-16.0); IMMATURE GRANULOCYTES 0.4 %; IMMATURE GRANULOCYTES ABSOLUTE 0.04 10/3/uL (0.0-0.11); LYMPHOCYTES 11.5 %; LYMPHOCYTES ABSOLUTE 1.05 10/3/uL (0.67-4.30); MEAN CORPUS HGB CONC 33.8 g/dL (32.0-36.0); MEAN CORPUSCULAR HEMOGLOB 35.5 pg (26.0-34.0); MEAN CORPUSCULAR VOLUME 105.1 fL (80-100); MEAN PLATELET VOLUME 10.6 fL (9.2-13.0); MONOCYTES 7.1 %; MONOCYTES ABSOLUTE 0.65 10/3/uL (0.21-1.20); PLATELET COUNT 173 10/3/uL (150-400); RED CELL COUNT 2.73 10/6/uL (4.0-5.6); WHITE BLOOD CELLS 9.1 10/3/uL (4.5-10.5)
[2017-08-01 07:09] LABS: MANUAL DIFF NO %
[2017-08-01 07:15] LABS: INTERNATIONAL NORMAL RATI 2.4 UNITS (-)
[2017-08-01 07:16] LABS: PARTIAL THROMBO TIME 78.5 SEC (22.5-37.2); PROTIME (NOT ORD) 25.7 SEC (12.0-14.5)
[2017-08-01 07:22] LABS: BUN (BLOOD UREA NITROGEN) 69 MG/DL (6-23); CALCIUM, SERUM 8.4 MG/DL (8.5-10.4); CHLORIDE, SERUM 107 MMOL/L (96-112); CO2 (CARBON DIOXIDE) 17 MMOL/L (24-34); CREATININE 1.81 MG/DL (0.55-1.02); GFR AFRICAN AMERICAN 29 ML/MIN (>=60); GFR NON AFRICAN AMERICAN 25 ML/MIN (>=60); GLUCOSE, SERUM 109 MG/DL (60-99); POTASSIUM, SERUM 3.7 MMOL/L (3.5-5.3); SODIUM, SERUM 136 MMOL/L (135-148)
[2017-08-02 06:50] LABS: RETICULOCYTE COUNT ABSOLUTE 29.3 10/3/uL (20.2-119.8)
[2017-08-02 06:53] LABS: INTERNATIONAL NORMAL RATI 2.8 UNITS (-); PROTIME (NOT ORD) 28.9 SEC (12.0-14.5)
[2017-08-02 07:10] LABS: BUN (BLOOD UREA NITROGEN) 69 MG/DL (6-23); CALCIUM, SERUM 9.1 MG/DL (8.5-10.4); CHLORIDE, SERUM 106 MMOL/L (96-112); CREATININE 1.59 MG/DL (0.55-1.02); FERRITIN 813 NG/ML (8-252); GFR AFRICAN AMERICAN 33 ML/MIN (>=60); GFR NON AFRICAN AMERICAN 29 ML/MIN (>=60); GLUCOSE, SERUM 113 MG/DL (60-99); IRON BINDING CAPACITY 221 MCG/DL (225-410); IRON, SERUM 42 MCG/DL (35-150); POTASSIUM, SERUM 3.5 MMOL/L (3.5-5.3); SODIUM, SERUM 138 MMOL/L (135-148)
[2017-08-02 07:11] LABS: CO2 (CARBON DIOXIDE) 21 MMOL/L (24-34)
[2017-08-03 06:47] LABS: INTERNATIONAL NORMAL RATI 2.6 UNITS (-); PROTIME (NOT ORD) 27.8 SEC (12.0-14.5)
[2017-08-03 06:49] LABS: BUN (BLOOD UREA NITROGEN) 68 MG/DL (6-23); CHLORIDE, SERUM 109 MMOL/L (96-112); CO2 (CARBON DIOXIDE) 22 MMOL/L (24-34); CREATININE 1.57 MG/DL (0.55-1.02); GFR AFRICAN AMERICAN 34 ML/MIN (>=60); GFR NON AFRICAN AMERICAN 29 ML/MIN (>=60); GLUCOSE, SERUM 107 MG/DL (60-99); POTASSIUM, SERUM 3.9 MMOL/L (3.5-5.3); SODIUM, SERUM 140 MMOL/L (135-148)
[2017-08-03 06:55] LABS: BASOPHILS 0.2 %; BASOPHILS ABSOLUTE 0.02 10/3/uL (0.0-0.16); EOSINOPHILS 0.9 %; EOSINOPHILS ABSOLUTE 0.09 10/3/uL (0.0-0.53); HEMATOCRIT 29.3 % (36.0-48.0); HEMOGLOBIN 9.8 g/dL (12.0-16.0); IMMATURE GRANULOCYTES 0.5 %; IMMATURE GRANULOCYTES ABSOLUTE 0.05 10/3/uL (0.0-0.11); LYMPHOCYTES 12.4 %; LYMPHOCYTES ABSOLUTE 1.27 10/3/uL (0.67-4.30); MEAN CORPUS HGB CONC 33.4 g/dL (32.0-36.0); MEAN CORPUSCULAR HEMOGLOB 35.8 pg (26.0-34.0); MEAN CORPUSCULAR VOLUME 106.9 fL (80-100); MEAN PLATELET VOLUME 10.8 fL (9.2-13.0); MONOCYTES 9.6 %; MONOCYTES ABSOLUTE 0.99 10/3/uL (0.21-1.20); NEUTROPHILS 76.4 %; NEUTROPHILS ABSOLUTE 7.85 10/3/uL (2.02-8.40); PLATELET COUNT 207 10/3/uL (150-400); RED CELL COUNT 2.74 10/6/uL (4.0-5.6); WHITE BLOOD CELLS 10.3 10/3/uL (4.5-10.5)
[2017-08-03 06:58] LABS: MANUAL DIFF NO %
== END 2017-08-03 18:06 | DRG 872 ==
LOC: ER 18:00 → 7NO 07-29 00:30
PROVIDERS: Emergency Medicine; Hospitalist; Internal Medicine; Internal Medicine Cardiovascular Disease; Nurse Practitioner Acute Care; Nurse Practitioner Gerontology
PROC: 02HV33Z Insertion of Infusion Device into Superior Vena Cava, Percutaneous Approach (ICD-10-PCS; 2017-07-31)
PROC: 5A2204Z Restoration of Cardiac Rhythm, Single (ICD-10-PCS; principal; 2017-08-02)
DX: A41.51 Sepsis due to Escherichia coli [E. coli] (principal); N17.9 Acute kidney failure, unspecified; N39.0 Urinary tract infection, site not specified; I48.0 Paroxysmal atrial fibrillation; I13.0 Hypertensive heart and chronic kidney disease with heart failure and stage 1 through stage 4 chronic kidney disease, or unspecified chronic kidney disease; I50.30 Unspecified diastolic (congestive) heart failure; M25.551 Pain in right hip; N18.3 Chronic kidney disease, stage 3 (moderate); Z79.01 Long term (current) use of anticoagulants; Z91.81 History of falling; E03.9 Hypothyroidism, unspecified; W10.9XXA Fall (on) (from) unspecified stairs and steps, initial encounter; Y92.018 Other place in single-family (private) house as the place of occurrence of the external cause; B96.20 Unspecified Escherichia coli [E. coli] as the cause of diseases classified elsewhere
CPT/HCPCS: 36569; 70450; 71010; 71020; 72170; 72192; 73502-LT; 80048; 80053; 80069; 81001; 82550; 82570; 82728; 83540; 83550; 83605; 83735; 83880; 83935; 84100; 84145; 84300; 84439; 84443; 85025; 85045; 85610; 85730; 87040; 87077; 87086; 87150; 87186; 92960; 93005; 93312; 93320; 93325; 94640; 97116-GP; 97161-GP; 99285; A9270-GY; C1751; C8929; G8978-CK-GP; G8979-CJ-GP; J0282; J0360; J0690; J1940; J2250; J2405; J3010; Q9957